=== PATIENT | female | born 1950 | race African-American/Black ===

== ENCOUNTER 2020-12-07 16:07 | Emergency (ER) | payer OTHER ==
[~2020-12-07] VITALS: Ht 167.6 cm; Wt 77.0 kg
[~2020-12-07 16:07] MED LIST: LOSA25TA26 PO; METF-414 PO
[2020-12-07] MEDS ORDERED: HYDROCODONE/ACETAMINOPHEN 5/325MG TABLET PO STA (17:10)
[2020-12-07] MEDS ORDERED: NAPR-681 PO ×2 (18:22→18:57)
[2020-12-07] MEDS ORDERED: IBUPROFEN 600MG TABLET PO STA (18:28)
[2020-12-07] MEDS ORDERED: T3 PO (18:57)
[2020-12-07 19:00] VITALS: BP 177/94
== END 2020-12-07 19:31 | disposition home or self-care (01) ==
LOC: ER 16:07
DX: S40.011A Contusion of right shoulder, initial encounter (principal); M54.9 Dorsalgia, unspecified; E11.9 Type 2 diabetes mellitus without complications; I10 Essential (primary) hypertension; W17.89XA Other fall from one level to another, initial encounter; Y93.89 Activity, other specified; Y92.89 Other specified places as the place of occurrence of the external cause; Y99.8 Other external cause status
CPT/HCPCS: 71045; 73030; 73060; 99284; A4565

== ENCOUNTER 2021-10-04 08:14 | Emergency (ER) | payer OTHER ==
[~2021-10-04] VITALS: Ht 165.1 cm; Wt 82.0 kg
[~2021-10-04 08:14] MED LIST changes: +NAPR-681 PO; +T3 PO
[2021-10-04] MEDS ORDERED: SODIUM CHLORIDE 0.9% 1,000 ML IV ONE (08:30)
[2021-10-04] MEDS ORDERED: MECLIZINE 25MG TABLET PO ONE (08:30)
[2021-10-04 10:16] LABS: BASOPHILS % 0.3 % (0.0-2.0); EOSINOPHILS % 0.8 % (0.0-5.0); HEMATOCRIT. 33.2 % (36.0-48.0); HEMOGLOBIN. 10.9 g/dL (12.0-16.0); MEAN CORPUSCULAR HEMOGLOBIN 24.8 pg (28.0-32.0); MEAN CORPUSCULAR VOLUME 75.1 fL (81.0-99.0); MEAN PLATELET VOLUME 8.4 fl (7.4-10.4); NEUTROPHILS % 77.9 % (40.0-76.0); PLATELET 235 x1000/uL (130-400); RED BLOOD CELL COUNT 4.41 mill/uL (4.2-5.4); RED CELL DISTRIBUTION WIDTH 15.1 % (11.6-14.6)
[2021-10-04 10:21] LABS: CHLORIDE 110 mEq/L (98-107)
[2021-10-04] MEDS ORDERED: DIAZEPAM 5 MG TABLET PO ONE (11:15)
[2021-10-04 15:30] VITALS: BP 160/89
== END 2021-10-04 15:34 | disposition short-term general hospital (02) ==
LOC: ER 08:14 → CANBEDREQ 14:02 → ER 15:34
DX: R42 Dizziness and giddiness (principal); I49.9 Cardiac arrhythmia, unspecified; I10 Essential (primary) hypertension; E11.9 Type 2 diabetes mellitus without complications; Z20.822 Contact with and (suspected) exposure to COVID-19
CPT/HCPCS: 36415; 70450; 80053; 84484; 85025; 87426; 93005; 96360; 96361; 99285; J7030; J8597

== ENCOUNTER 2022-10-24 10:50 | Emergency (ER) | payer OTHER ==
[~2022-10-24] VITALS: Ht 149.9 cm; Wt 72.0 kg
[2022-10-24 10:56] VITALS: BP 152/76
[2022-10-24] MEDS ORDERED: ACETAMINOPHEN 325MG TABLET PO ONE (11:30)
[2022-10-24] MEDS ORDERED: ACET-2708 MT (13:42)
== END 2022-10-24 15:04 | disposition home or self-care (01) ==
LOC: ER 10:58
DX: S70.02XA Contusion of left hip, initial encounter (principal); S80.12XA Contusion of left lower leg, initial encounter; S40.012A Contusion of left shoulder, initial encounter; E11.9 Type 2 diabetes mellitus without complications; W01.0XXA Fall on same level from slipping, tripping and stumbling without subsequent striking against object, initial encounter; Y93.89 Activity, other specified; Y92.89 Other specified places as the place of occurrence of the external cause; Y99.8 Other external cause status
CPT/HCPCS: 73030; 73502; 73562; 73590; 99284